=== PATIENT | female | born 2005 | race Caucasian/White ===

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

== ENCOUNTER 2025-01-13 11:43 | Emergency (ER) | payer BC ==
[2025-01-13 12:31] LABS: GLUCOSE,URINE NEGATIVE (NEGATIVE); OCCULT BLOOD,URINE SMALL (NEGATIVE)
[2025-01-13 12:45] LABS: APPEARANCE,URINE HAZY
[2025-01-13 12:46] LABS: EPITHELIAL CELLS,URINE MODERATE (NONE-FEW)
== END 2025-01-13 14:12 | disposition left against medical advice (07) ==
LOC: MW.ED 11:43
DX: T83.32XA Displacement of intrauterine contraceptive device, initial encounter (principal); Z75.3 Unavailability and inaccessibility of health-care facilities; Z91.030 Bee allergy status; Z79.899 Other long term (current) drug therapy
CPT/HCPCS: 76830; 76830-26; 81001; 81025; 99282; 99284